=== PATIENT | male | born 2000 | race Two or more races ===

== ENCOUNTER 2023-06-15 14:14 | Emergency (ER) | payer MEDICAID, OTHER ==
[~2023-06-15] VITALS: Ht 167.6 cm; Wt 63.7 kg
[2023-06-15] MEDS ORDERED: POLYSOL28 OP (15:18)
[2023-06-15] MEDS ORDERED: ACE3T PO (15:18)
[2023-06-15 15:24] VITALS: BP 122/77; PULSE 95; RESP 18; TEMP 98; O2SAT 97
== END 2023-06-15 15:25 | disposition home or self-care (01) ==
LOC: ER 14:14
DX: H57.12 Ocular pain, left eye (principal); X58.XXXA Exposure to other specified factors, initial encounter; Y93.89 Activity, other specified; Y92.89 Other specified places as the place of occurrence of the external cause; Y99.8 Other external cause status